=== PATIENT | female | born 1940 | race Caucasian/White ===

== ENCOUNTER 2021-01-19 12:41 | Outpatient (RCR) | payer MEDICARE, OTHER, SELFPAY | END 2021-01-29 12:29 | disposition home or self-care (01) | LOC: HO.WCC 12:41 | PROVIDERS: PCP Internal Medicine; Referring Provider Internal Medicine; Visit Provider Physician Assistant | DX: L89.152 Pressure ulcer of sacral region, stage 2 (principal); R73.03 Prediabetes; E44.0 Moderate protein-calorie malnutrition; F17.210 Nicotine dependence, cigarettes, uncomplicated; R62.7 Adult failure to thrive | CPT/HCPCS: 99212; 99213 ==